=== PATIENT | male | born 2000 | race Caucasian/White ===

== ENCOUNTER 2023-10-06 19:58 | Emergency (ER) | payer OTHER ==
[2023-10-06] MEDS ORDERED: Naproxen 500 MG TAB ONE (20:36)
[2023-10-06] MEDS ORDERED: Clindamycin 150 MG CAP ONE (20:36)
== END 2023-10-06 20:57 | disposition home or self-care (01) ==
LOC: NAV ERS 19:58
DX: K04.7 Periapical abscess without sinus (principal); F17.210 Nicotine dependence, cigarettes, uncomplicated
CPT/HCPCS: 99282